=== PATIENT | female | born 1990 | race Caucasian/White ===

== ENCOUNTER 2022-11-28 05:50 | Inpatient (IN) | payer OTHER ==
[~2022-11-28] VITALS: Ht 170.2 cm; Wt 120.2 kg
--- NOTE | 2022-11-28 06:33 | NUR ---
COVID 19 SWAB DONE TO BOTH NARES AND SENT TO IN HOUSE LAB.
--- NOTE | 2022-11-29 07:34 | PR ---
[facility] [address] [place], [place] [address] Signed PP Progress Notes Datetime Report Generated by BENTLEY: 11/29/2022 07:34 SUBJECTIVE: [id number] Pain: Within Normal Limits Vital Signs: [id number] Vital Signs: Reviewed; Within Normal Limits Cardiovascular: Not Done Respiratory: Not Done Abdomen/Uterus: Abnormal Lochia: Normal Vulva/Perineum: Not Done Breasts: Not Done CVA Tenderness: Not Done Extremities: Normal Incision: Not Applicable Progress: Normal Exam Comments: Fundus firm, NT @ U-1 H/H 10.6/30.7, WBC 11.6, plat 163k IMPRESSION/PLAN/PROCEDURES: [id number] Impression: Normal Progression Plan: Continue Present Management Procedures: None Progress Notes: Doing well. Will continue present care with D/C in am. Signing Physician: Aracelis Ortiz MD Copies: ~ *Electronically Signed* 11/29/2234 ARACELIS ORTIZ MD PATIENT NAME: ALEXYS MAHONEY JANICE PROGRESS NOTE DATE OF : 89 PHYSICIAN: ARACELIS ORTIZ MD RPT #: [id number] REPORT IS CONFIDENTIAL AND NOT TO BE RELEASED WITHOUT AUTHORIZATION
--- NOTE | 2022-11-30 08:54 | PR ---
[facility] [address] [place] [address] Signed PP Progress Notes Datetime Report Generated by CPN: 11/30/2022 08:54 SUBJECTIVE: [id number] Pain: Within Normal Limits Pain Comments: some irritation of left eye and plugged right ear Vital Signs: [id number] Vital Signs: Reviewed; Within Normal Limits Cardiovascular: Not Done Respiratory: Not Done Abdomen/Uterus: Abnormal Lochia: Normal Vulva/Perineum: Not Done Breasts: Not Done CVA Tenderness: Not Done Extremities: Normal Incision: Not Applicable Progress: Normal Exam Comments: Fundus firm, NT @ U-2. IMPRESSION/PLAN/PROCEDURES: [id number] Impression: Normal Progression Plan: Discharge Procedures: None Progress Notes: Doing well other than her URI c/o. I think she is stable for D/C at this time. Signing Physician: Aracelis Ortiz MD Copies: ~ *Electronically Signed* 11/30/22 0854 ARACELIS ORTIZ MD PATIENT NAME: ALEXYS MAHONEY JANICE PROGRESS NOTE DATE OF : 90 PHYSICIAN: ARACELIS ORTIZ MD RPT #: [id number] REPORT IS CONFIDENTIAL AND NOT TO BE RELEASED WITHOUT AUTHORIZATION
== END 2022-11-30 10:20 | disposition home or self-care (01) | DRG 807 ==
LOC: FBC 05:50
PROVIDERS: ADMIT Obstetrics & Gynecology; ATTEND Obstetrics & Gynecology
PROC: 10E0XZZ Delivery of Products of Conception, External Approach (ICD-10-PCS; principal; 2022-11-28)
PROC: 00HU33Z Insertion of Infusion Device into Spinal Canal, Percutaneous Approach (ICD-10-PCS; 2022-11-28)
PROC: 3E0R3BZ Introduction of Anesthetic Agent into Spinal Canal, Percutaneous Approach (ICD-10-PCS; 2022-11-28)
DX: O42.12 Full-term premature rupture of membranes, onset of labor more than 24 hours following rupture (principal); Z37.0 Single live birth; Z3A.39 39 weeks gestation of pregnancy; Z67.10 Type A blood, Rh positive; Z20.822 Contact with and (suspected) exposure to COVID-19; O99.214 Obesity complicating childbirth
CPT/HCPCS: 01960; 36415; 84112; 85027; 86850; 86900; 86901; 87502; A9270; C9803; J2590; J7121; U0003